=== PATIENT | female | born 1980 | race Caucasian/White ===

== ENCOUNTER 2016-05-23 17:44 | Emergency (ER) | payer MEDICAID, OTHER ==
[~2016-05-23] VITALS: Ht 165.1 cm; Wt 65.0 kg
[~2016-05-23 17:44] MED LIST: CEPH500 PO; METH5SOL3 PO
[2016-05-23 17:45] VITALS: BP 120/73; PULSE 91; RESP 16; TEMP 98.1; O2SAT 98
[2016-05-23] MEDS ORDERED: METR-1 PO (18:39)
--- NOTE | 2016-05-23 18:42 | PD ---
HPI Chief Complaint: Unbundler Problem/Complaint Time Seen by Provider: 18:30 Travel History International Travel<30 days: No Contact w/Intl Traveler<30days: No Traveled to known affect area: No History of Present Illness HPI 35-year-old female presents for evaluation of vaginal discharge. Symptoms started 3 days ago. She describes it as a irritating discharged with a foul- smelling. Symptoms started after her menstrual period ended 3 days ago. She reports that she has had bacterial vaginosis multiple times in the past and this feels similar. She typically gets it after her menstrual periods. She does note some chronic pelvic pain secondary to ovarian cysts but nothing acute. No dysuria, hematuria, flank pain. No nausea or vomiting, diarrhea or constipation, fevers or chills. She was last sexually active 5 months ago. She has no other complaints. PFSH Past Medical History Blood Disorders: No Cancer: Yes (MELANOMA R CHEST REMOVED, 3 LUMPS GROIN TO BE REMOVED) Cardiovascular Problems: No Endocrine: No Genitourinary: No Immune Disorder: No Musculoskeletal: Yes (SPINA BIFADA) Neurologic: No Psychiatric: No Reproductive: Yes (ovarian cysts, TUBULAR ) Respiratory: No ?: Not Ectopic : Yes Ovarian Cysts: Yes Past Surgical History Body Medical Devices: BREAST IMPLANTS Section: Yes Gynecologic Surgery: Yes (OVARIAN CYST - LAPROSCOPIC, TUBULAR , BREAST IMPLANTS) Other Surgery: Yes (breast augmention) Social History Alcohol Use: Yes (early in ) Tobacco Use: Yes Substance Use: No Allergies-Medications (Allergen,Severity, Reaction): Coded Allergies: Codeine (Verified Adverse Reaction, Intermediate, SHAKY, SWEATY, SICK FEELING, 05/22/10) Darvocet-N 100 (Verified Adverse Reaction, Intermediate, MAKES SICK, ) states makes her vomit Zithromax (Verified Adverse Reaction, Intermediate, MAKES "SICK", 05/22/10) Reported Meds & Prescriptions Reported Meds & Active Scripts Active Reported Keflex 500 mg Cap (Cephalexin Monohydrate) 500 Mg Cap 500 Mg PO QID Methadone Hcl (Methadone HCl) 5 Mg/5 Ml Evelyn 10 Mg PO 6 TID Review of Systems Except as stated in HPI: all other systems reviewed are Neg Physical Exam Narrative GENERAL: Well-nourished female in no acute distress SKIN: Warm and dry. HEAD: Atraumatic. Normocephalic. EYES: Pupils equal and round. No scleral icterus. No injection or drainage. ENT: No nasal bleeding or discharge. Mucous membranes pink and moist. NECK: Trachea midline. No JVD. CARDIOVASCULAR: Regular rate and rhythm. No murmur appreciated. RESPIRATORY: No accessory muscle use. Clear to auscultation. Breath sounds equal bilaterally. GASTROINTESTINAL: Abdomen soft, non-tender, nondistended. Hepatic and splenic margins not palpable. No CVA tenderness. MUSCULOSKELETAL: No obvious deformities. NEUROLOGICAL: Awake and alert. No obvious cranial nerve deficits. Motor grossly within normal limits. Normal speech. PSYCHIATRIC: Appropriate mood and affect; insight and judgment normal. Data Data Last Documented VS Vital Signs Date Time Temp Pulse Resp B/P Pulse Ox O2 Delivery O2 Flow Rate FiO2 05/23/16 17:45 98.1 91 16 120/73 98 Orders Metronidazole (Flagyl) (05/23/16 18:45) [facility] Medical Decision Making Medical Screen Exam Complete: Yes Emergency Medical Condition: Yes Medical Record Reviewed: Yes Differential Diagnosis Bacterial vaginosis, vaginitis, trichomoniasis, cervicitis, pelvic inflammatory disease, tubo-ovarian abscess Narrative Course 35 year old female presents with vaginal discharge for 3 days ever since her menstrual period ended. Symptoms are consistent with previous episodes of bacterial vaginosis. Her abdomen is soft and benign. She hasn't been sexually active in over 5 months. I discussed with the patient the option of performing a pelvic examination to rule out other etiologies of her discharge versus empiric treatment given that she has had this issue frequently in the past and this feels similar. The patient declines pelvic examination would be preferred to be treated empirically for bacterial vaginosis. This seems reasonable given her history. She is being discharged with Flagyl. Discussed returning to the emergency room for worsening symptoms. Diagnosis Primary Impression: Vaginal discharge Additional Instructions: Medication as prescribed. Follow-up with primary care physician. Return for any acutely new or worsening symptoms. Med/Other Pt SpecificInfo: Prescription(s) given Scripts Metronidazole (Flagyl)500 Mg [id number] Mg PO BID 7 Days Ref 0 Prov:Marcin Ernandez MD 05/23/16 Disposition: 01 DISCHARGE HOME Condition: Stable Vlad Dc May 23, 2016 18:42
[2016-05-23] MEDS ORDERED: metroNIDAZOLE 500 MG TAB PO ONE (18:45)
== END 2016-05-23 19:01 | disposition home or self-care (01) ==
LOC: NETRI 17:44
DX: N89.8 Other specified noninflammatory disorders of vagina (principal); R10.2 Pelvic and perineal pain; G89.29 Other chronic pain; N83.209 Unspecified ovarian cyst, unspecified side; Z72.0 Tobacco use
CPT/HCPCS: 99283

== ENCOUNTER 2016-05-29 20:21 | Emergency (ER) | payer MEDICAID ==
[~2016-05-29] VITALS: Ht 162.6 cm; Wt 65.0 kg
[~2016-05-29 20:21] MED LIST changes: +METR-1 PO
[2016-05-29 20:23] VITALS: BP 166/93; PULSE 146; RESP 18; TEMP 98.5; O2SAT 97
[2016-05-29 20:57] VITALS: PULSE 129; RESP 18; O2SAT 96
[2016-05-29] MEDS ORDERED: AMOX500T PO (22:14)
[2016-05-29] MEDS ORDERED: AMOXICILLIN (TRIHYDRATE) 500 MG CAP PO ONE (22:15)
[2016-05-29] MEDS ORDERED: IBUPROFEN 600 MG TAB PO ONE (22:15)
--- NOTE | 2016-05-29 22:18 | PD ---
HPI Chief Complaint: ENT Complaint Time Seen by Provider: 22:15 Travel History International Travel<30 days: No Contact w/Intl Traveler<30days: No Traveled to known affect area: No History of Present Illness HPI 35-year-old white female presents to emergency department from the [facility] drug court. She states that she's had sore throat for last several days. Positive subjective fever and chills. She denies any ear pain, cough, congestion, nausea, vomiting, diarrhea or urinary symptoms. PFSH Past Medical History Narrative Medical Melanoma, substance abuse Blood Disorders: No Cancer: Yes (MELANOMA R CHEST REMOVED, 3 LUMPS GROIN TO BE REMOVED) Cardiovascular Problems: No Endocrine: No Genitourinary: No Immune Disorder: No Musculoskeletal: Yes (SPINA BIFADA) Neurologic: No Psychiatric: No Reproductive: Yes (ovarian cysts, TUBULAR ) Respiratory: No ?: Not LMP: 03/26/16 Ectopic : Yes Ovarian Cysts: Yes Past Surgical History Body Medical Devices: BREAST IMPLANTS Section: Yes Gynecologic Surgery: Yes (OVARIAN CYST - LAPROSCOPIC, TUBULAR , BREAST IMPLANTS) Other Surgery: Yes (breast augmention) Social History Alcohol Use: Yes (early in ) Tobacco Use: Yes Substance Use: No Allergies-Medications (Allergen,Severity, Reaction): Coded Allergies: Codeine (Verified Adverse Reaction, Intermediate, SHAKY, SWEATY, SICK FEELING, 05/22/10) Darvocet-N 100 (Verified Adverse Reaction, Intermediate, MAKES SICK, ) states makes her vomit Zithromax (Verified Adverse Reaction, Intermediate, MAKES "SICK", 05/22/10) Reported Meds & Prescriptions Reported Meds & Active Scripts Active Amoxicillin 500 Mg Tab 1,000 Mg PO BID Flagyl (Metronidazole) 500 Mg Tab 500 Mg PO BID 7 Days Reported Keflex 500 mg Cap (Cephalexin Monohydrate) 500 Mg Cap 500 Mg PO QID Methadone HCl 5 Mg/5 Ml Evelyn 10 Mg PO 6 TID Review of Systems Except as stated in HPI: all other systems reviewed are Neg Physical Exam Narrative GENERAL: Well-developed, well-nourished in no acute distress. Nontoxic appearing. HEAD: Normocephalic, atraumatic. EYES: Pupils equal round and reactive. Extraocular motions intact. No scleral icterus. No injection or drainage. ENT: TMs clear without erythema. The external auditory canals clear. Nose: clear . Posterior pharynx is erythematous and moist. Positive tonsillar edema but no exudate. Uvula midline. Airway patent. NECK: Trachea midline.Supple, nontender, moves head freely. No central bony tenderness or spasm. CARDIOVASCULAR: Regular rate and rhythm without murmurs, gallops, or rubs. RESPIRATORY: Clear to auscultation. Breath sounds equal bilaterally. No wheezes , rales, or rhonchi. GASTROINTESTINAL: Abdomen soft, non-tender, nondistended. No hepato-splenomegaly , or palpable masses. No guarding. EXTREMITIES: No clubbing, cyanosis, or edema. No joint tenderness, effusion, or edema noted. BACK: Nontender without deformity or crepitance. No flank tenderness. Data Data Last Documented VS Vital Signs Date Time Temp Pulse Resp B/P Pulse Ox O2 Delivery O2 Flow Rate FiO2 05/29/16 20:57 129 18 96 05/29/16 20:23 98.5 166/93 Room Air MDM Medical Decision Making Medical Screen Exam Complete: Yes Emergency Medical Condition: Yes Medical Record Reviewed: Yes Differential Diagnosis MDM: High Differential diagnoses: Strep throat, viral pharyngitis, mono, peritonsillar abscess, retropharyngeal abscess, Meng's angina Narrative Course This is acute pharyngitis. Patient given Amoxil 500 mg by mouth, Motrin 600 mg by mouth. Diagnosis Primary Impression: Acute pharyngitis Qualified Code: J02.9 - Acute pharyngitis, unspecified etiology Patient Instructions: General Instructions Additional Instructions: Rest. Force fluids. Salt[place] gargles. Tylenol and Advil. Chloraseptic Rhododendron Cepastat lozenge. Amoxicillin. Follow-up with a primary care doctor in one week. Return to the ER if any problems. Scripts Amoxicillin 500 Mg Tab1,000 Mg PO BID #40 TAB Prov:Huey Posada MD 05/29/16 Disposition: 01 DISCHARGE HOME Condition: Stable Chan Gaspar May 29, 2016 22:17
== END 2016-05-29 22:35 | disposition home or self-care (01) ==
LOC: NEPB 20:21
DX: J02.9 Acute pharyngitis, unspecified (principal)
CPT/HCPCS: 99283

== ENCOUNTER 2016-06-17 15:11 | Emergency (ER) | payer MEDICAID ==
[~2016-06-17 15:11] MED LIST changes: +AMOX500T PO
[2016-06-17 15:36] VITALS: BP 119/94; PULSE 96; RESP 16; TEMP 98; O2SAT 96
[2016-06-17] MEDS ORDERED: ZOFR4TAB3 SL (16:18)
[2016-06-17] MEDS ORDERED: AMOX500T PO (16:18)
--- NOTE | 2016-06-17 16:18 | PD ---
HPI Chief Complaint: GI Complaint Time Seen by Provider: 16:02 Travel History International Travel<30 days: No Contact w/Intl Traveler<30days: No Traveled to known affect area: No History of Present Illness HPI Patient 35-year-old female presents emergency department for evaluation of nausea. Patient states she still been feeling somewhat ill after she was diagnosed pharyngitis last week and was unable to fill her medications because [facility]. Patient states she is able to fill her medications if she is given a new prescription. He states his throat still feels somewhat sore but her fevers have resolved denies any rash. Denies any abdominal pain vomiting diarrhea constipation vaginal discharge or vaginal bleeding. PFSH Past Medical History Blood Disorders: No Cancer: Yes (MELANOMA R CHEST REMOVED, 3 LUMPS GROIN TO BE REMOVED) Cardiovascular Problems: No Endocrine: No Genitourinary: No Immune Disorder: No Musculoskeletal: Yes (SPINA BIFADA) Neurologic: No Psychiatric: No Reproductive: Yes (ovarian cysts, TUBULAR ) Respiratory: No ?: Not LMP: 2 WKS AGO Ectopic : Yes Ovarian Cysts: Yes Past Surgical History Body Medical Devices: BREAST IMPLANTS Section: Yes Gynecologic Surgery: Yes (OVARIAN CYST - LAPROSCOPIC, TUBULAR , BREAST IMPLANTS) Other Surgery: Yes (breast augmention) Social History Alcohol Use: Yes (early in ) Tobacco Use: Yes Substance Use: No Allergies-Medications (Allergen,Severity, Reaction): Coded Allergies: Codeine (Verified Adverse Reaction, Intermediate, SHAKY, SWEATY, SICK FEELING, 06/17/16) Darvocet-N 100 (Verified Adverse Reaction, Intermediate, MAKES SICK, ) states makes her vomit Zithromax (Verified Adverse Reaction, Intermediate, MAKES "SICK", 06/17/16) Reported Meds & Prescriptions Reported Meds & Active Scripts Active Amoxicillin 500 Mg Tab 500 Mg PO BID 10 Days Zofran Odt (Ondansetron Odt) 4 Mg Tab 4 Mg SL Q6HR PRN Review of Systems Except as stated in HPI: all other systems reviewed are Neg Physical Exam Narrative GENERAL: Well-nourished, well-developed patient. SKIN: Focused skin assessment warm/dry. No rash HEAD: Normocephalic. EYES: No scleral icterus. No injection or drainage. ENT: Oropharynx clear tonsils normal no exudate airway widely patent. NECK: Supple, trachea midline. No JVD or lymphadenopathy. CARDIOVASCULAR: Regular rate and rhythm without murmurs, gallops, or rubs. RESPIRATORY: Breath sounds equal bilaterally. No accessory muscle use. GASTROINTESTINAL: Abdomen soft, non-tender, nondistended. No CVA tenderness no rebound or percussive tenderness. MUSCULOSKELETAL: No cyanosis, or edema. BACK: Nontender without obvious deformity. No CVA tenderness. Data Data Last Documented VS Vital Signs Date Time Temp Pulse Resp B/P Pulse Ox O2 Delivery O2 Flow Rate FiO2 06/17/16 15:36 98.0 96 16 119/94 96 Room Air Orders Ed Urine Pregnancytest Poc (06/17/16 16:17) MDM Medical Decision Making Medical Screen Exam Complete: Yes Emergency Medical Condition: Yes Medical Record Reviewed: Yes Differential Diagnosis Streptococcal pharyngitis, URI, bronchitis, Narrative Course Urine test negative personally performed. Review of the medical records show the patient had pharyngitis a few days ago and now appears to have significantly resolved. Have offered the patient Bicillin as prophylaxis against medical heart disease and scarlet fever and she would prefer pills. A new prescription for amoxicillin has been written. She still for discharge this time and no indication further workup. Diagnosis Primary Impression: Acute pharyngitis Qualified Code: J02.9 - Acute pharyngitis, unspecified etiology Med/Other Pt SpecificInfo: Prescription(s) given Scripts Amoxicillin 500 Mg [id number] Mg PO BID 10 Days Ref 0 Prov:Michael Mata MD 06/17/16 Ondansetron Odt (Zofran Odt)4 Mg Tab4 Mg SL Q6HR PRN (Nausea/Vomiting) #30 TAB Ref 0 Prov:Michael Mata MD 06/17/16 Disposition: DISCHARGE HOME Condition: Stable Michael Mata MD Jun 17, 2016 16:18
== END 2016-06-17 17:16 | disposition home or self-care (01) ==
LOC: NEPA 15:11
DX: J02.9 Acute pharyngitis, unspecified (principal); Z72.0 Tobacco use
CPT/HCPCS: 84703; 99283

== ENCOUNTER 2016-06-22 16:43 | Emergency (ER) | payer MEDICAID ==
[~2016-06-22 16:43] MED LIST changes: -CEPH500 PO; -METH5SOL3 PO; -METR-1 PO; +ZOFR4TAB3 SL
[2016-06-22 16:45] VITALS: BP 135/92; PULSE 92; RESP 16; TEMP 98.3; O2SAT 96
[2016-06-23] MEDS ORDERED: ZOFR4TAB3 SL (06:08)
[2016-06-23] MEDS ORDERED: HYDR-3533 PO (06:08)
== END 2016-06-22 18:15 | disposition left against medical advice (07) ==
LOC: NED 16:43
DX: Z03.89 Encounter for observation for other suspected diseases and conditions ruled out (principal)
CPT/HCPCS: 99281

== ENCOUNTER 2016-06-23 00:15 | Emergency (ER) | payer MEDICAID ==
[2016-06-23 00:17] VITALS: BP 158/94; PULSE 88; RESP 16; TEMP 98.8; O2SAT 97
--- NOTE | 2016-06-23 00:59 | PD ---
Physical Exam Date Seen by Provider: Jun 23, 2016 Time Seen by Provider: 00:46 Narrative PT SEEN IN TRIAGE. PT IN DRUG TX CENTER AT THE [facility]. SICK WITH N/V UNABLE TO KEEP ANYTHING DOWN. PRESENTS BY EMS. JUST TXED FOR STREP 2-3 WEEKS EARLIER. VITALS SIGNS STABLE. WAITING FOR BED PLACEMENT. Data Data Last Documented VS Vital Signs Date Time Temp Pulse Resp B/P Pulse Ox O2 Delivery O2 Flow Rate FiO2 06/23/16 00:17 98.8 88 16 158/94 97 Room Air [facility] Medical Record Reviewed: Yes Supervised Visit with MACK: Yes Condition: Stable Chan Gaspar Jun 23, 2016 00:59
[2016-06-23] MEDS ORDERED: ACETAMINOPHEN/HYDROcodone 325 MG/5 MG TAB PO ONE (04:15)
[2016-06-23] MEDS ORDERED: ONDANSETRON ODT 4 MG TAB PO ONE (04:15)
--- NOTE | 2016-06-23 05:04 | RADRPT ---
EXAM DATE/TIME: 06/23/2016 04:34 [facility] COMPARISON: No previous studies available for comparison. INDICATIONS : Patient fell today and has swelling and pain near 4th and 5th metatarsals on right foot. MEDICAL HISTORY : None. SURGICAL HISTORY : None. ENCOUNTER: Initial ACUITY: 1 day PAIN SCORE: 8/10 LOCATION: Right Foot FINDINGS: 3 views of the right foot demonstrate an old ununited fracture of the proximal fifth metatarsal metad iaphysis located approximately 2.6 cm from the proximal epiphysis. There is hypertrophic bone at this site but fracture line remains visualized. Lisfranc joint appears intact. There is subchondral cysti c change in the cuboid adjacent to the fifth tarsometatarsal joint. No soft tissue abnormality or rad iopaque foreign body is identified. 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 There is adjacen t hypertrophic bone but fracture line remains visualized. There is degenerative change at the fifth t arsometatarsal joint. Dennis Koch MD on June 23, 2016 at 4:59 Board Certified Radiologist. This report was verified electronically.
--- NOTE | 2016-06-23 05:05 | RADRPT ---
EXAM DATE/TIME: 06/23/2016 04:38 [facility] COMPARISON: No previous studies available for comparison. INDICATIONS : Vomiting and left flank pain from fall. MEDICAL HISTORY : None. SURGICAL HISTORY : None. ENCOUNTER: Initial ACUITY: 2 days PAIN SCORE: 6/10 LOCATION: chest FINDINGS: Portable AP view of the chest demonstrates a normal-sized cardiac silhouette. No effusion, consolidat ion, or pneumothorax is visualized. The bones and soft tissues demonstrate no acute abnormality. CONCLUSION: No acute cardiopulmonary abnormality is identified. Dennis Koch MD on June 23, 2016 at 5:03 Board Certified Radiologist. This report was verified electronically.
[2016-06-23] MEDS ORDERED: ZOFR4TAB3 SL (06:08)
[2016-06-23] MEDS ORDERED: HYDR-3533 PO (06:08)
--- NOTE | 2016-06-23 06:09 | PD ---
HPI Chief Complaint: GI Complaint Time Seen by Provider: 03:35 Travel History International Travel<30 days: No Contact w/Intl Traveler<30days: No Traveled to known affect area: No History of Present Illness HPI 35-year-old female comes to the ER because she states she has been vomiting for 5 days. She evidently had a diagnosis of strep throat. She states she took antibiotics because she is at the [facility]. While she was waiting in the ER she went to [place] and slipped and fell. She hurt her right foot and left ribs. She reports an old fracture on the right foot and that she has chronic pain there. There is also pain in the left anterior chest wall worse with palpation and breathing. The fall was mechanical. Nausea and vomiting more or less seemed to have resolved since the patient arrived to the ER. PFSH Past Medical History Blood Disorders: No Cancer: Yes (MELANOMA R CHEST REMOVED, 3 LUMPS GROIN TO BE REMOVED) Cardiovascular Problems: No Endocrine: No Genitourinary: No Immune Disorder: No Musculoskeletal: Yes (SPINA BIFADA) Neurologic: No Psychiatric: No Reproductive: Yes (ovarian cysts, TUBULAR ) Respiratory: No Tetanus Vaccination: < 5 Years Influenza Vaccination: No ?: Not : 7 Para: 3 Miscarriage: 4 Ectopic : Yes Ovarian Cysts: Yes Past Surgical History Body Medical Devices: BREAST IMPLANTS Section: Yes Gynecologic Surgery: Yes (OVARIAN CYST - LAPROSCOPIC, TUBULAR , BREAST IMPLANTS) Other Surgery: Yes (breast augmenTAtion) Social History Alcohol Use: No Tobacco Use: Yes (1/2-1ppd) Substance Use: No (REHAB) Allergies-Medications (Allergen,Severity, Reaction): Coded Allergies: Codeine (Verified Adverse Reaction, Intermediate, SHAKY, SWEATY, SICK FEELING, 06/23/16) Darvocet-N 100 (Verified Adverse Reaction, Intermediate, MAKES SICK, ) states makes her vomit Zithromax (Verified Adverse Reaction, Intermediate, MAKES "SICK", 06/23/16) Reported Meds & Prescriptions Reported Meds & Active Scripts Active Amoxicillin 500 Mg Tab 500 Mg PO BID 10 Days Zofran Odt (Ondansetron Odt) 4 Mg Tab 4 Mg SL Q6HR PRN Review of Systems Except as stated in HPI: all other systems reviewed are Neg General / Constitutional: No: Fever Gastrointestinal: Positive: Nausea, Vomiting Physical Exam Narrative GENERAL: 35-year-old female pleasant well-nourished well-developed SKIN: Focused skin assessment warm/dry. Ecchymosis over the right foot HEAD: Atraumatic. Normocephalic. EYES: Pupils equal and round. No scleral icterus. No injection or drainage. ENT: No nasal bleeding or discharge. Mucous membranes pink and moist. NECK: Trachea midline. No JVD. CARDIOVASCULAR: Regular rate and rhythm. No murmur appreciated. RESPIRATORY: No accessory muscle use. Clear to auscultation. Breath sounds equal bilaterally. GASTROINTESTINAL: Abdomen soft, non-tender, nondistended. Hepatic and splenic margins not palpable. MUSCULOSKELETAL: No obvious deformities. No clubbing. No cyanosis. No edema. Ecchymosis over the right foot chronic deformity. The patient is ambulatory in the ER. NEUROLOGICAL: Awake and alert. No obvious cranial nerve deficits. Motor grossly within normal limits. Normal speech. PSYCHIATRIC: Appropriate mood and affect; insight and judgment normal. Data Data Last Documented VS Vital Signs Date Time Temp Pulse Resp B/P Pulse Ox O2 Delivery O2 Flow Rate FiO2 06/23/16 03:26 18 06/23/16 00:56 06/23/16 00:17 98.8 88 97 Room Air Orders Foot, Complete ([id number]) (06/23/16 ) Chest, Single Ap (06/23/16 ) Ondansetron Odt (Zofran Odt) (06/23/16 04:15) Acetamin-Hydrocod 325-5 Mg ([place] 5-325 (06/23/16 04:15) MDM Medical Decision Making Medical Screen Exam Complete: Yes Emergency Medical Condition: Yes Medical Record Reviewed: Yes Differential Diagnosis Foot fracture, rib fracture, chronic pain, fall Narrative Course Patient has a chronic right foot injury. We'll place a short posterior splint and provide crutches. Follow-up with podiatry. Pain controlled here. The patient has been ambulating in the ER. She has not vomited in the ER. No evidence of rib injury. 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 There is adjacent hypertrophic bone but fracture line remains visualized. There is degenerative change at the fifth tarsometatarsal joint. Dennis Koch MD Chest X-Ray 06/23/16 0000 Signed Impressions: Service Date/Time: Thursday, June 23, 2016 04:38 - CONCLUSION: No acute cardiopulmonary abnormality is identified. Dennis Koch MD Diagnosis Primary Impression: Foot fracture, right Qualified Code: S92.901D - Foot fracture, right, with routine healing, subsequent encounter Additional Impressions: Contusion of rib on right side Qualified Code: S20.211A - Contusion of rib on right side, initial encounter Fall Qualified Code: W19.XXXA - Fall, initial encounter Nausea & vomiting Qualified Code: R11.2 - Nausea and vomiting, intractability of vomiting not specified, unspecified vomiting type Referrals: Arely Martinez DPKrishan 2 days Additional Instructions: You have a choice when it comes to health care, and we are glad that you chose [facility]. Hopefully, we have met your expectations on today's visit. You are welcome to return to [facility] at any time, as we are committed to meeting the health care needs of our community. Med/Other Pt SpecificInfo: Prescription(s) given Scripts Hydrocodone-Acetaminophen (Lortab)5-325 Mg Tab1-2 Tab PO Q6H PRN (PAIN SCALE 6 TO 10) #15 TAB Ref 0 Prov:Anibal Ashford MD 06/23/16 Ondansetron Odt (Zofran Odt)4 Mg Tab4 Mg SL Q6HR PRN (Nausea/Vomiting) #10 TAB Ref 0 Prov:Anibal Ashford MD 06/23/16 Disposition: 01 DISCHARGE HOME Condition: Stable Anibal Ashford MD Jun 23, 2016 06:09
== END 2016-06-23 07:07 | disposition home or self-care (01) ==
LOC: NEPE 00:15
DX: S92.351A Displaced fracture of fifth metatarsal bone, right foot, initial encounter for closed fracture (principal); S20.211A Contusion of right front wall of thorax, initial encounter; R11.2 Nausea with vomiting, unspecified; W01.0XXA Fall on same level from slipping, tripping and stumbling without subsequent striking against object, initial encounter; Y92.511 Restaurant or cafe as the place of occurrence of the external cause
CPT/HCPCS: 29515; 71010; 73630; 99284; E0113; L2114

== ENCOUNTER 2016-06-26 18:01 | Emergency (ER) | payer MEDICAID ==
[~2016-06-26] VITALS: Ht 162.6 cm; Wt 66.0 kg
[~2016-06-26 18:01] MED LIST changes: +HYDR-3533 PO
[2016-06-26 18:05] VITALS: BP 130/75; PULSE 112; RESP 20; TEMP 99.7; O2SAT 99
[2016-06-26 21:40] VITALS: BP 133/85; PULSE 98; RESP 17; O2SAT 98
[2016-06-26] MEDS ORDERED: CEPHALEXIN MONOHYDRATE 500 MG CAP PO ONE (21:45)
[2016-06-26] MEDS ORDERED: CLINDAMYCIN PHOS 600 MG/4 ML VIAL IM ONE (21:45)
[2016-06-26] MEDS ORDERED: CEPH-460 PO (21:47)
[2016-06-26] MEDS ORDERED: BACT800T5 PO (21:47)
--- NOTE | 2016-06-26 21:47 | PD ---
HPI Chief Complaint: Skin Problem Time Seen by Provider: 21:45 Travel History International Travel<30 days: No Contact w/Intl Traveler<30days: No Traveled to known affect area: No History of Present Illness HPI Patient comes in complaining of possible bug bite to her left distal thigh that began yesterday. Patient states she awoke with it. Patient is concerned she may have been bitten by a bug. Patient denies doing anything for this. Pain is worse with palpation and walking. Pain improves with rest. Describes pain as a throbbing burning sensation. Denies any drainage, fevers, , or previous episodes like this. PFSH Past Medical History Blood Disorders: No Cancer: Yes (MELANOMA R CHEST REMOVED, 3 LUMPS GROIN TO BE REMOVED) Cardiovascular Problems: No Diminished Hearing: No Endocrine: No Genitourinary: No Immune Disorder: No Musculoskeletal: Yes (SPINA BIFADA) Neurologic: No Psychiatric: No Reproductive: Yes (ovarian cysts, TUBULAR ) Respiratory: No Tetanus Vaccination: Unknown Influenza Vaccination: No ?: Not LMP: 2 WEEKS PRIOR : 7 Para: 3 Miscarriage: 4 Ectopic : Yes Ovarian Cysts: Yes Past Surgical History Body Medical Devices: BREAST IMPLANTS Section: Yes Gynecologic Surgery: Yes (OVARIAN CYST - LAPROSCOPIC, TUBULAR , BREAST IMPLANTS) Other Surgery: Yes (breast augmenTAtion) Social History Alcohol Use: No Tobacco Use: Yes (03/27- PPD) Substance Use: No (REHAB) Allergies-Medications (Allergen,Severity, Reaction): Coded Allergies: Codeine (Verified Adverse Reaction, Intermediate, SHAKY, SWEATY, SICK FEELING, 06/26/16) Darvocet-N 100 (Verified Adverse Reaction, Intermediate, MAKES SICK, ) states makes her vomit Zithromax (Verified Adverse Reaction, Intermediate, MAKES "SICK", 06/26/16) Reported Meds & Prescriptions Reported Meds & Active Scripts Active Bactrim DS (Sulfamethoxazole-Trimethoprim) 800-160 Mg Tab 1 Tab PO BID Keflex (Cephalexin) 500 Mg Cap 500 Mg PO Q8H Review of Systems Except as stated in HPI: all other systems reviewed are Neg Physical Exam Narrative GENERAL: Well-developed, overly nourished, in no acute distress, and non-ill appearing. SKIN: Focused skin assessment warm and dry. Patient has cellulitis noted left medial thigh distal aspect is approximately 4 cm x 6 cm in diameter. It is indurated without fluctuation or crepitus. Mildly tender to palpation. It is erythematous and febrile. There is no drainage or obvious wound. HEAD: Atraumatic. Normocephalic. EYES: Pupils equal and round. EOMI. No scleral icterus. No injection or drainage. ENT: No nasal bleeding or discharge. Mucous membranes pink and moist. NECK: Trachea midline. Supple. No nuclear rigidity. RESPIRATORY: No accessory muscle use. No respiratory distress. GASTROINTESTINAL: Abdomen soft, non-tender, nondistended. Hepatic and splenic margins not palpable. No pulsatile mass. MUSCULOSKELETAL: No obvious deformities. No clubbing. No cyanosis. No edema. Full range of motion. Normal gait. NEUROLOGICAL: Awake and alert. No obvious cranial nerve deficits. Motor grossly within normal limits. Normal speech. PSYCHIATRIC: Appropriate mood and affect; insight and judgment normal. Data Data Last Documented VS Vital Signs Date Time Temp Pulse Resp B/P Pulse Ox O2 Delivery O2 Flow Rate FiO2 06/26/16 23:43 84 18 113/73 98 06/26/16 21:40 Room Air 06/26/16 18:05 99.7 Orders Clindamycin Inj (Cleocin Inj) (06/26/16 21:45) Cephalexin (Keflex) (06/26/16 21:45) Ibuprofen (Motrin) (06/26/16 22:00) MDM Medical Decision Making Medical Screen Exam Complete: Yes Emergency Medical Condition: Yes Differential Diagnosis Abscess, cellulitis, folliculitis, gangrene, other Narrative Course The patient has no evidence of obvious abscess at this time. The patient will be discharged on antibiotics for cellulitis with possible early/immature abscess. Clinical suspicion, diagnosis and care management was discussed. The patient was given signs and symptoms warnings for worsening infection, such as spreading of redness, increasing pain, and/or swelling, associated heat, pus or fever and instructed to return immediately if these signs or symptoms worsen. The patient is to return in 2 days for recheck for maturity. Sooner if worsens or as needed. The patient agrees with plan. Patient in no obvious distress upon re-evaluation. Patient was asked if they wanted to speak to my attending, which the patient did not wish to do at this time. Any questions/concerns in reference to patient diagnosis/condition discussed and clarified prior to patient's discharge. Reinforced sheer importance of close follow up with patient's primary physician or primary care clinic. Instructed patient to return to ED immediately, if symptoms return/ worsen. Pt showed understanding of above instructions. Further instructions and recommendations were detailed in discharge paperwork. Pt ambulated without difficulty out of ED at discharge. Diagnosis Primary Impression: Cellulitis Qualified Code: L03.116 - Cellulitis of left lower extremity Patient Instructions: Abscess (GEN), Cellulitis (DC), General Instructions Additional Instructions: Follow-up with your primary care physician and return here in 2 days for recheck. Take all medication as prescribed. Apply warm compresses to affected area 4 times throughout the day to help with pain and facilitate healing. Return to the emergency department if symptoms get worse. Med/Other Pt SpecificInfo: Prescription(s) given Scripts Sulfamethoxazole-Trimethoprim (Bactrim DS)800-160 Mg Tab1 Tab PO BID #20 TAB Ref 0 Prov:Michael Mata MD 06/26/16 Cephalexin (Keflex)500 Mg Uvo360 Mg PO Q8H #30 CAP Ref 0 Prov:Michael Mata MD 06/26/16 Disposition: 01 DISCHARGE HOME Condition: Stable Maikol Abdalla Jun 26, 2016 21:47
[2016-06-26] MEDS ORDERED: IBUPROFEN 800 MG TAB PO ONE (22:00)
[2016-06-26 23:43] VITALS: BP 113/73
== END 2016-06-26 23:44 | disposition home or self-care (01) ==
LOC: NEPE 18:01
DX: L03.116 Cellulitis of left lower limb (principal)
CPT/HCPCS: 96372

== ENCOUNTER 2017-03-30 13:02 | Inpatient (IN) | payer MEDICAID ==
[2017-03-30] VITALS (14 sets, daily range): BP systolic 106–118; BP diastolic 58–78; PULSE 66–98; RESP 16–20; TEMP 97.5–98; O2SAT 98–100
[~2017-03-30] VITALS: Ht 162.6 cm; Wt 86.0 kg
[~2017-03-30 13:02] MED LIST changes: -AMOX500T PO; +BACT800T5 PO; +CEPH-460 PO; -HYDR-3533 PO; -ZOFR4TAB3 SL
[2017-03-30] MEDS ORDERED: LACTATED RINGER'S 1000 ML INJ 1,000 ML IV ONE (13:25)
[2017-03-30] MEDS ORDERED: BUSP10TA PO (14:23)
[2017-03-30] MEDS ORDERED: PREN29TA PO (14:23)
[2017-03-30] MEDS ORDERED: subutex PO (14:23)
[2017-03-30] MEDS ORDERED: SERO50TA PO (14:23)
[2017-03-30] MEDS: LACTATED RINGER'S 1000 ML INJ 1,000 ML IV SCH ×2 (14:24→20:35)
[2017-03-30 14:27] LABS: AUTOMATED NEUTROPHIL # 5.3 TH/MM3 (1.8-7.7); BASOPHIL % 0.5 % (0.0-2.0); EOSINOPHIL # 0.1 TH/MM3 (0-0.4); EOSINOPHIL % 0.8 % (0.0-4.0); HEMATOCRIT 31.6 % (35.0-46.0); HEMOGLOBIN 10.7 GM/DL (11.6-15.3); LYMPHOCYTE # 2.2 TH/MM3 (1.0-4.8); MEAN CORPUSCULAR HEMOGLOBIN 31.5 PG (27.0-34.0); MEAN CORPUSCULAR HGB CONC 33.9 % (32.0-36.0); MEAN PLATELET VOLUME 7.9 FL (7.0-11.0); MONO % 5.4 % (0.0-8.0); MONOCYTE # 0.4 TH/MM3 (0-0.9); NEUT % 66.3 % (16.0-70.0); PLATELET COUNT 241 TH/MM3 (150-450); RED BLOOD COUNT 3.39 MIL/MM3 (4.00-5.30); RED CELL DISTRIBUTION WIDTH 14.1 % (11.6-17.2)
[2017-03-30] MEDS ORDERED: ceFAZolin 2 GM PREMIX 50 ML IV SCH (14:30)
[2017-03-30 14:35] LABS: BACTERIA, URINE RARE /hpf; BILIRUBIN, URINE NEG (NEG); BLOOD, URINE NEG (NEG); GLUCOSE,URINE NEG (NEG); KETONE, URINE NEG (NEG); MUCUS URINE FEW /lpf (OCC); NITRITE,URINE NEG (NEG); SQUAMOUS EPITHELIAL CELL URINE 1 /hpf (0-5); URINE COLOR YELLOW (YELLW/STRAW); URINE LEUKOCYTE ESTERASE NEG (NEG)
[2017-03-30] MEDS ORDERED: MORPHINE SULFATE PF 5 MG/10 ML VIAL ONE (14:59)
[2017-03-30] MEDS ORDERED: CITRIC ACID-SODIUM CITRATE LIQ 30 ML UDC PO SCH (15:00)
[2017-03-30] MEDS ORDERED: SODIUM CHLORIDE 0.9% FLUSH 10 ML FLUSH IV FLUSH PRN (16:00)
[2017-03-30] MEDS ORDERED: ACETAMINOPHEN 1000 MG/100 ML 100 ML IV ONE ×2 (16:00→17:05)
[2017-03-30] MEDS ORDERED: BUPR8SUB SL (16:00)
[2017-03-30] MEDS ORDERED: oxyCODONE/ACETAMINOPHEN 5 MG/325 MG TAB PO PRN (16:00)
[2017-03-30] MEDS ORDERED: OXYTOCIN 30 UNITS-500ML PREMIX 500 ML IV ONE (16:00)
[2017-03-30] MEDS ORDERED: ONDANSETRON HCL 4 MG/2 ML VIAL IV PUSH PRN (16:00)
--- NOTE | 2017-03-30 16:02 | HHI.DCPOC ---
Discharge Care Plan Report Symptoms to Your Doctor -Temperature above 100.5 degrees -Redness, of incision or excessive or foul smelling drainage -Unusual pain or calf pain -Increased vaginal bleeding -Painful or difficulty urinating -Feelings of extreme sadness or anxiety after 2 weeks Goals to Promote Your Health * To prevent worsening of your condition and complications * To maintain your health at the optimal level Directions to Meet Your Goals Take your medications as prescribed Follow your dietary instruction Follow activity as directed Ensure plenty of rest for recovery Drink fluids for hydration Keep your appointments as scheduled Take your immunizations and boosters as scheduled If your symptoms worsen call your PCP, if no PCP go to Urgent Care Center or Emergency Room Smoking is Dangerous to Your Health. Avoid second hand smoke Call the 24-hour crisis hotline for domestic abuse at Aubree Hart MD Mar 30, 2017 16:02
--- NOTE | 2017-03-30 16:06 | PD.OB.DELI ---
Procedure Note Section Procedure Pre Op Diagnosis: (1) Previous section (2) Term Post Op Diagnosis: (1) Previous section (2) Term Performed by Aurbee Hart Procedure: Repeat Low Transverse Sec, Other (right salpingectomy) Indication for delivery: Desired elective repeat Informed consent obtained: For anesthesia, For procedure, Other (tubal ligation with previous left salpingectomy) Confirmed correct: Patient, Procedure, Site, Time-out taken Anesthesia: Spinal Medication prior to procedure: As documented in eMAR Monitoring during procedure: Blood pressure monitoring, monitoring manager, doppler, Pulse oximetry Urinary catheter: Inserted using sterile technique, To dependent drainage Sterile preparation: Duraprep, In usual fashion Position: Supine with wedge to right side Operative Features Skin Incision: Pfannenstiel Uterine Incision: Low transverse w/knife / blunt ext Membranes Ruptured: Artificially Presentation: Occiput anterior Delivery date: Mar 30, 2017 Delivery time: 16:06 Delivery of infant: Assisted : Female One Minute : 8 Five Minute : 9 Weight: 7 4 Status of : Viable, Cord blood Placenta delivered: Intact Medications: Antibiotics, Oxytocin Estimated blood loss: 500 Procedure tolerated: Well Maternal Condition: Stable Condition: Stable Procedure in detail dictated Aubree Hart MD Mar 30, 2017 16:06
[2017-03-30] MEDS ORDERED: OXYTOCIN 30 UNITS-500ML PREMIX 500 ML ONE (16:55)
[2017-03-30] MEDS: BUPRENORPHINE HCL 8 MG SUBLINGUAL TAB SL SCH ×2 (17:28→21:00)
--- NOTE | 2017-03-30 17:29 | MP ---
cc: NICOLE ESCAMILLA DATE OF SURGERY 03/30/17 PREOPERATIVE DIAGNOSIS 1. Term intrauterine prior section x2 2. Opioid maintenance with Subutex residing at warm POSTOPERATIVE DIAGNOSIS 1. Term intrauterine prior section x2 2. Opioid maintenance with Subutex residing at warm 3. Delivered PROCEDURE Repeat low transverse segment section and tubal ligation, specifically right salpingectomy as she is status post left salpingectomy ANESTHESIA Spinal with Duramorph and then she received a tap SURGEON Hadley Escamilla MD HUMAN INTELLIGENCE OR staff FINDINGS A living female was delivered from [facility] with clear fluid. No nuchal cord. Apgars were eight at 1 minute and 9 at 5 minutes and her weight was 7 pounds 4 ounces. The placenta was posterior and delivered intact with a three-vessel cord. The uterus was exteriorized allowing that she had with the right tube and a fimbriectomy was performed for the left tube had been removed due to prior ectopic. Estimated blood loss was 500 mL. Sponge, instrument, needle count correct. She tolerated the procedure well and went to the recovery room in stable condition. PROCEDURE IN DETAIL The patient was identified as Danisha Carey. She was walked to the OR, given a spinal with Duramorph, placed in dorsal supine position with weight off the vena cava. After establishing a time-out, she was prepped and draped in the usual sterile fashion. She had a Arguello and then sequentials on and she had received 2 grams of Ancef IV. We assured adequate analgesia and a Pfannenstiel was then made through her previous Pfannenstiel and carried down through the scarred subcutaneous tissue with the Bovie on cutting and then the fascia was incised in an elliptical fashion and it was taken sharply off the rectus muscle. The rectus muscle was opened in the midline. The parietal peritoneum was entered. A bladder flap was not able to be created due to the scarring of the bladder to the lower uterine segment. An incision was made superior to that and carefully extended to not tear the bladder. The infant was delivered with a Kiwi support and the cord was clamped x2, cut and she was handed to neonatology team in attending. A 45-second delay was done to optimize hematocrit. Cord blood was obtained and then the placenta was removed intact. The uterus was exteriorized, cleaned with a lap sponge and closed with chromic in a running interlocking fashion with a second horizontal imbricating suture with care to avoid the bladder. Then the right tube was grasped and the entire distal portion of it was tied off x3 with 0 plain and then it was excised. There was no left tube and this was confirmed. The uterus was placed back in the abdominal cavity. Incision was examined for hemostasis. Irrigation was performed and then the rectus muscles approximated with a Vicryl stitch. The fascia was closed with a running Vicryl, the subcutaneous layer was closed with 3-0 plain and the skin was closed with 4-0 Vicryl on a Robin needle. MD NATHAN Sims/ /4:15 PM /4:56 PM
[2017-03-30] MEDS ORDERED: EPIDURAL-DIPHENHYDRAMINE HCL 50 MG/ML VIAL IV PUSH PRN (18:15)
[2017-03-30] MEDS ORDERED: EPIDURAL-NALOXONE HCL 0.4 MG/ML AMP IV PUSH PRN (18:15)
[2017-03-30] MEDS ORDERED: EPIDURAL-DO NOT ADMINISTER ANTICOAGULANTS PRN (18:15)
[2017-03-30] MEDS ORDERED: EPIDURAL-NO SYSTEMIC NARCOTICS PRN (18:15)
[2017-03-30] MEDS ORDERED: EPIDURAL-DIPHENHYDRAMINE HCL 50 MG CAP PO PRN (18:15)
[2017-03-30] MEDS: IBUPROFEN 600 MG TAB PO PRN (20:15)
[2017-03-30] MEDS: oxyCODONE/ACETAMINOPHEN 5 MG/325 MG TAB PO PRN (20:15)
[2017-03-30] MEDS ORDERED: LACTATED RINGER'S 1000 ML INJ 1,000 ML IV SCH (20:55)
[2017-03-30] MEDS: SODIUM CHLORIDE 0.9% FLUSH 10 ML FLUSH IV FLUSH SCH (21:00)
[2017-03-30] MEDS: QUEtiapine FUMARATE 25 MG TAB PO SCH (21:47)
[2017-03-30] MEDS: busPIRone HCL 10 MG TAB PO SCH (21:47)
[2017-03-31] VITALS (8 sets, daily range): BP systolic 98–117; BP diastolic 52–71; PULSE 72–100; RESP 16–20; TEMP 97.5–98.1; O2SAT 97–98
[2017-03-31] MEDS: oxyCODONE/ACETAMINOPHEN 5 MG/325 MG TAB PO PRN ×4 (00:51→14:36)
[2017-03-31] MEDS ORDERED: OXYTOCIN 30 UNITS-500ML PREMIX 500 ML IV PRN (02:00)
[2017-03-31] MEDS: LACTATED RINGER'S 1000 ML INJ 1,000 ML IV SCH (03:15)
[2017-03-31] MEDS: IBUPROFEN 600 MG TAB PO PRN ×3 (03:39→19:58)
[2017-03-31 06:05] LABS: AUTOMATED NEUTROPHIL # 8.1 TH/MM3 (1.8-7.7); BASOPHIL % 0.1 % (0.0-2.0); EOSINOPHIL % 0.1 % (0.0-4.0); HEMATOCRIT 24.3 % (35.0-46.0); HEMOGLOBIN 8.4 GM/DL (11.6-15.3); LYMPH % 14.5 % (9.0-44.0); LYMPHOCYTE # 1.5 TH/MM3 (1.0-4.8); MEAN CELL VOLUME 93.5 FL (80.0-100.0); MEAN CORPUSCULAR HEMOGLOBIN 32.1 PG (27.0-34.0); MEAN CORPUSCULAR HGB CONC 34.4 % (32.0-36.0); MEAN PLATELET VOLUME 7.7 FL (7.0-11.0); MONO % 5.6 % (0.0-8.0); MONOCYTE # 0.6 TH/MM3 (0-0.9); NEUT % 79.7 % (16.0-70.0); PLATELET COUNT 202 TH/MM3 (150-450); RED CELL DISTRIBUTION WIDTH 13.9 % (11.6-17.2); WHITE BLOOD COUNT 10.2 TH/MM3 (4.0-11.0)
[2017-03-31] MEDS: BUPRENORPHINE HCL 8 MG SUBLINGUAL TAB SL SCH ×2 (09:32→21:14)
[2017-03-31] MEDS: busPIRone HCL 10 MG TAB PO SCH ×2 (09:32→21:14)
[2017-03-31] MEDS ORDERED: INFLUENZA VIRUS VACCINE (QUADRIVALENT) 0.5 ML SYR IM ONE (10:00)
[2017-03-31] MEDS ORDERED: MEASLES, MUMPS, RUBELLA VACCINE 0.5 ML VIAL SQ ONE (16:00)
[2017-03-31] MEDS ORDERED: DIPHTH/TETANUS/ACEL PERTUSSIS (BOOSTER) 0.5 ML VIAL/PFS IM ONE (16:00)
[2017-03-31] MEDS ORDERED: MEPERIDINE HCL 50 MG/ML VIAL IM ONE (16:15)
--- NOTE | 2017-03-31 16:24 | HHI.OB ---
Subjective Post Operative Day: 1 Remarks Pain is 8/10 and I can hardly take care of my baby Bleeding is normal Has flatus and eating a regular diet. Baby is doing well Objective Vitals/I&O Vital Signs Date Time Temp Pulse Resp B/P (MAP) Pulse Ox O2 Delivery O2 Flow Rate FiO2 03/31/17 08:00 97.8 72 16 101/64 (76) 97 03/31/17 05:35 16 03/31/17 04:50 18 03/31/17 04:00 97.5 76 114/66 (82) 97 03/31/17 03:39 18 03/31/17 01:00 20 03/31/17 00:00 98.1 100 98/52 (67) 98 03/30/17 23:45 18 03/30/17 21:47 20 03/30/17 20:00 97.7 79 18 98 03/30/17 20:00 110/67 (81) 03/30/17 18:21 18 03/30/17 18:00 98.0 72 18 115/78 (90) 99 03/30/17 17:30 74 16 113/69 (84) 100 03/30/17 17:15 97.6 03/30/17 17:15 79 110/69 (83) 03/30/17 17:15 16 100 03/30/17 17:00 106/63 (77) 03/30/17 17:00 66 16 110/69 (83) 100 03/30/17 16:45 79 18 100 03/30/17 16:45 109/60 (76) 03/30/17 16:30 16 100 03/30/17 16:30 83 118/60 (79) Result Diagram: 03/31/17 0556 Objective Remarks GENERAL: Well-nourished, well-developed patient. CARDIOVASCULAR: Regular rate and rhythm without murmurs, gallops, or rubs. RESPIRATORY: Breath sounds equal bilaterally. No accessory muscle use. ABDOMEN/GI: Abdomen soft, non-tender, bowel sounds present. Incision: Clean, dry and intact. Fundus: Firm, non-tender at umbilicus. GENITOURINARY: Light to moderate bleeding. EXTREMITIES: No cyanosis or edema, non-tender, without signs of DVT. Medications and IVs Current Medications Medications (Trade) Dose Ordered Sig/Crissy Route Start Time Stop Time Status Last Admin Lactated Ringer's 1,000 ml @ 150 mls/hr Q6H40M IV 03/30/17 13:55 03/30/17 14:24 Cefazolin Sodium/ Dextrose 50 ml @ 100 mls/hr FORMING DEPARTMENT END FINDER IV 03/30/17 14:30 04/03/17 14:29 03/30/17 14:47 (Bicitra Liq) 30 ml FORMING DEPARTMENT END FINDER PO 03/30/17 15:00 04/03/17 14:59 03/30/17 14:47 Lactated Ringer's 1,000 ml @ 100 mls/hr Q10H IV 03/30/17 20:55 03/31/17 16:54 Oxytocin 500 ml @ 100 mls/hr UNSCH X1 PRN IV 03/31/17 02:00 04/01/17 01:59 (NS Flush) 2 ml BID IV FLUSH 03/30/17 21:00 (NS Flush) 2 ml UNSCH PRN IV FLUSH 03/30/17 16:00 (Mylicon Chew) 80 mg QID PRN PO 03/30/17 16:00 (Motrin) 600 mg Q6H PRN PO 03/30/17 16:00 03/31/17 10:32 (Percocet 5-325 Mg) 1 tab Q4H PRN PO 03/30/17 16:00 (Percocet 5-325 Mg) 2 tab Q4H PRN PO 03/30/17 16:00 03/31/17 14:36 (Zofran Inj) 4 mg Q6H PRN IV PUSH 03/30/17 16:00 (Buprenorphine) 4 mg BID SL 03/30/17 17:00 03/31/17 09:32 (Buspar) 10 mg Q12HR PO 03/30/17 21:00 03/31/17 09:32 (SEROquel) 50 mg HS PO 03/30/17 21:00 03/30/17 21:47 Miscellaneous Information NO SYSTEMIC NARCOTICS TO BE GIVEN FO... UNSCH PRN .XX 03/30/17 18:15 03/31/17 18:14 (Narcan Inj) 0.4 mg UNSCH PRN IV PUSH 03/30/17 18:15 03/31/17 18:14 (Benadryl Inj) 25 mg Q6H PRN IV PUSH 03/30/17 18:15 03/31/17 18:14 (Benadryl) 50 mg Q6H PRN PO 03/30/17 18:15 03/31/17 18:14 Miscellaneous Information ALL NURSING DEPARTMENTS UNSCH PRN .XX 03/30/17 18:15 03/31/17 18:14 Assessment/Plan Assessment and Plan POD #1 Severe anemia will give her some venofer today and restart her iv. Pain is too high will give dose of demerol and increase the percocet to 7.5 Control the pain and then routine care Cha Mejia MD Mar 31, 2017 16:24
[2017-03-31] MEDS ORDERED: oxyCODONE/ACETAMINOPHEN 7.5 MG/325 MG TAB PO PRN (16:30)
[2017-03-31] MEDS: SIMETHICONE 80 MG CHEWABLE TAB PO PRN (19:57)
[2017-03-31] MEDS: oxyCODONE/ACETAMINOPHEN 7.5 MG/325 MG TAB PO PRN (20:18)
[2017-03-31] MEDS: QUEtiapine FUMARATE 25 MG TAB PO SCH (21:14)
[2017-04-01] MEDS: oxyCODONE/ACETAMINOPHEN 7.5 MG/325 MG TAB PO PRN ×5 (00:34→19:49)
[2017-04-01] MEDS: IBUPROFEN 600 MG TAB PO PRN ×3 (04:33→19:50)
[2017-04-01 08:00] VITALS: BP 97/69; PULSE 81; RESP 20; TEMP 95.3; O2SAT 0
[2017-04-01] MEDS ORDERED: IRON SUCROSE INJ 100 MG in SODIUM CHLORIDE 0.9% INJ 100 ML IV SCH (09:00)
[2017-04-01] MEDS: busPIRone HCL 10 MG TAB PO SCH ×2 (09:09→21:27)
[2017-04-01] MEDS: BUPRENORPHINE HCL 8 MG SUBLINGUAL TAB SL SCH ×2 (09:10→21:26)
[2017-04-01] MEDS: SIMETHICONE 80 MG CHEWABLE TAB PO PRN (09:10)
[2017-04-01] MEDS ORDERED: OXYC1TAB35 PO (14:11)
--- NOTE | 2017-04-01 14:21 | HHI.OB ---
Subjective Post Operative Day: 2 Remarks Doing well, pain medicine is working better now Baby needs to stay for a bit because of BILLY. She is going back to project warm. Bleeding is normal Objective Vitals/I&O Vital Signs Date Time Temp Pulse Resp B/P (MAP) Pulse Ox O2 Delivery O2 Flow Rate FiO2 04/01/17 08:00 95.3 81 20 97/69 (78) 0 03/31/17 20:00 117/71 (86) 03/31/17 20:00 97.9 90 16 Result Diagram: 03/31/17 0556 Objective Remarks GENERAL: Well-nourished, well-developed patient. CARDIOVASCULAR: Regular rate and rhythm without murmurs, gallops, or rubs. RESPIRATORY: Breath sounds equal bilaterally. No accessory muscle use. ABDOMEN/GI: Abdomen soft, non-tender, bowel sounds present. Incision: Clean, dry and intact. Fundus: Firm, non-tender at umbilicus. GENITOURINARY: Light to moderate bleeding. EXTREMITIES: No cyanosis or edema, non-tender, without signs of DVT. Medications and IVs Current Medications Medications (Trade) Dose Ordered Sig/Crissy Route Start Time Stop Time Status Last Admin Lactated Ringer's 1,000 ml @ 150 mls/hr Q6H40M IV 03/30/17 13:55 03/30/17 14:24 Cefazolin Sodium/ Dextrose 50 ml @ 100 mls/hr POWDER ROOM ATTENDANT IV 03/30/17 14:30 04/03/17 14:29 03/30/17 14:47 (Bicitra Liq) 30 ml POWDER ROOM ATTENDANT PO 03/30/17 15:00 04/03/17 14:59 03/30/17 14:47 (NS Flush) 2 ml BID IV FLUSH 03/30/17 21:00 (NS Flush) 2 ml UNSCH PRN IV FLUSH 03/30/17 16:00 (Mylicon Chew) 80 mg QID PRN PO 03/30/17 16:00 04/01/17 09:10 (Motrin) 600 mg Q6H PRN PO 03/30/17 16:00 04/01/17 13:45 (Zofran Inj) 4 mg Q6H PRN IV PUSH 03/30/17 16:00 (Buprenorphine) 4 mg BID SL 03/30/17 17:00 04/01/17 09:10 (Buspar) 10 mg Q12HR PO 03/30/17 21:00 04/01/17 09:09 (SEROquel) 50 mg HS PO 03/30/17 21:00 03/31/17 21:14 (Percocet 7.5-325 Mg) 1 tab Q4H PRN PO 03/31/17 16:30 (Percocet 7.5-325 Mg) 2 tab Q4H PRN PO 03/31/17 16:30 04/01/17 09:09 Iron Sucrose 100 mg/Sodium Chloride 105 ml @ 105 mls/hr DAILY IV 04/01/17 09:00 04/03/17 09:59 Assessment/Plan Assessment and Plan POD #2 Severe anemia unable to start an IV so did not get her vevnofer. Will give po Fe later when she is off the Percocet. Pain is under better control and she wants the 7.5 percocet to go home. Informed her they may not pay for that dosage. Routine care. Cha Mejia MD Apr 01, 2017 14:21
[2017-04-01 20:00] VITALS: BP 104/64; PULSE 104; RESP 20; TEMP 97.5; O2SAT 98
[2017-04-01] MEDS: QUEtiapine FUMARATE 25 MG TAB PO SCH (21:26)
[2017-04-02] MEDS: oxyCODONE/ACETAMINOPHEN 7.5 MG/325 MG TAB PO PRN ×6 (00:21→21:00)
[2017-04-02] MEDS: IBUPROFEN 600 MG TAB PO PRN ×3 (04:38→20:59)
[2017-04-02 08:47] VITALS: BP 115/78; PULSE 125; RESP 18; TEMP 98.6
[2017-04-02] MEDS: SODIUM CHLORIDE 0.9% FLUSH 10 ML FLUSH IV FLUSH SCH (09:00)
[2017-04-02] MEDS: busPIRone HCL 10 MG TAB PO SCH ×2 (09:01→21:00)
[2017-04-02] MEDS: BUPRENORPHINE HCL 8 MG SUBLINGUAL TAB SL SCH ×2 (09:02→21:02)
[2017-04-02] MEDS ORDERED: DOCUSATE SODIUM 100 MG CAP PO ONE (09:30)
[2017-04-02] MEDS ORDERED: POLYSACCHARIDE IRON COMPLEX 150 MG CAP PO ONE (09:30)
[2017-04-02] MEDS: SIMETHICONE 80 MG CHEWABLE TAB PO PRN (11:10)
--- NOTE | 2017-04-02 18:24 | HHI.OB ---
Subjective Post Operative Day: 3 Remarks POD#3, C/O INCISIONAL PAIN ,REQUIRES FREQUENT PAIN MED. Objective Vitals/I&O Vital Signs Date Time Temp Pulse Resp B/P (MAP) Pulse Ox O2 Delivery O2 Flow Rate FiO2 04/02/17 08:47 98.6 04/02/17 08:47 125 18 115/78 (90) 04/01/17 20:00 104/64 (77) 04/01/17 20:00 104 20 98 04/01/17 20:00 97.5 Result Diagram: 03/31/17 0556 Objective Remarks GENERAL: Well-nourished, well-developed patient. CARDIOVASCULAR: Regular rate and rhythm without murmurs, gallops, or rubs. RESPIRATORY: Breath sounds equal bilaterally. No accessory muscle use. ABDOMEN/GI: Abdomen soft, non-tender, bowel sounds present. Incision: Clean, dry and intact. Fundus: Firm, non-tender at umbilicus. GENITOURINARY: Light to moderate bleeding. EXTREMITIES: No cyanosis or edema, non-tender, without signs of DVT. Medications and IVs Current Medications Medications (Trade) Dose Ordered Sig/Crissy Route Start Time Stop Time Status Last Admin Lactated Ringer's 1,000 ml @ 150 mls/hr Q6H40M IV 03/30/17 13:55 03/30/17 14:24 Cefazolin Sodium/ Dextrose 50 ml @ 100 mls/hr GEAR SHAPER SET UP OPERATOR IV 03/30/17 14:30 04/03/17 14:29 03/30/17 14:47 (Bicitra Liq) 30 ml GEAR SHAPER SET UP OPERATOR PO 03/30/17 15:00 04/03/17 14:59 03/30/17 14:47 (NS Flush) 2 ml BID IV FLUSH 03/30/17 21:00 (NS Flush) 2 ml UNSCH PRN IV FLUSH 03/30/17 16:00 (Mylicon Chew) 80 mg QID PRN PO 03/30/17 16:00 04/02/17 11:10 (Motrin) 600 mg Q6H PRN PO 03/30/17 16:00 04/02/17 13:01 (Zofran Inj) 4 mg Q6H PRN IV PUSH 03/30/17 16:00 (Buprenorphine) 4 mg BID SL 03/30/17 17:00 04/02/17 09:02 (Buspar) 10 mg Q12HR PO 03/30/17 21:00 04/02/17 09:01 (SEROquel) 50 mg HS PO 03/30/17 21:00 04/01/17 21:26 (Percocet 7.5-325 Mg) 1 tab Q4H PRN PO 03/31/17 16:30 (Percocet 7.5-325 Mg) 2 tab Q4H PRN PO 03/31/17 16:30 04/02/17 16:56 Assessment/Plan Assessment and Plan POD #3 CONTINUES FREQUENT NARCOTIC PAIN MED, EXAM IS UNREMARKABLE, SLOW TO AMBULATE. DISCUSSED HOLDING DISCHARGE UNTIL TOMORROW . Discharge Planning POD#4; TOMORROW Attending Attestation SEEN BY Jesús Martínez MD Apr 02, 2017 18:24
[2017-04-02] MEDS: QUEtiapine FUMARATE 25 MG TAB PO SCH (21:01)
[2017-04-02 21:31] VITALS: BP 99/80; PULSE 108; RESP 18; TEMP 98
[2017-04-03] MEDS: oxyCODONE/ACETAMINOPHEN 7.5 MG/325 MG TAB PO PRN ×3 (01:06→09:30)
[2017-04-03] MEDS: IBUPROFEN 600 MG TAB PO PRN (05:11)
[2017-04-03 08:00] VITALS: BP 118/65; PULSE 94; RESP 18; TEMP 98.2
--- NOTE | 2017-04-03 08:31 | HHI.OB ---
Subjective Post Operative Day: 4 Remarks pain better controlled Objective Vitals/I&O Vital Signs Date Time Temp Pulse Resp B/P (MAP) Pulse Ox O2 Delivery O2 Flow Rate FiO2 04/02/17 21:31 98.0 108 18 99/80 (86) 04/02/17 08:47 98.6 04/02/17 08:47 125 18 115/78 (90) Result Diagram: 03/31/17 0556 Objective Remarks GENERAL: Well-nourished, well-developed patient. CARDIOVASCULAR: Regular rate and rhythm without murmurs, gallops, or rubs. RESPIRATORY: Breath sounds equal bilaterally. No accessory muscle use. ABDOMEN/GI: Abdomen soft, non-tender, bowel sounds present. Incision: Clean, dry and intact. Fundus: Firm, non-tender at umbilicus. GENITOURINARY: Light to moderate bleeding. EXTREMITIES: No cyanosis or edema, non-tender, without signs of DVT. Medications and IVs Current Medications Medications (Trade) Dose Ordered Sig/Crissy Route Start Time Stop Time Status Last Admin Lactated Ringer's 1,000 ml @ 150 mls/hr Q6H40M IV 03/30/17 13:55 03/30/17 14:24 Cefazolin Sodium/ Dextrose 50 ml @ 100 mls/hr BILL BOARD POSTER IV 03/30/17 14:30 04/03/17 14:29 03/30/17 14:47 (Bicitra Liq) 30 ml BILL BOARD POSTER PO 03/30/17 15:00 04/03/17 14:59 03/30/17 14:47 (NS Flush) 2 ml BID IV FLUSH 03/30/17 21:00 (NS Flush) 2 ml UNSCH PRN IV FLUSH 03/30/17 16:00 (Mylicon Chew) 80 mg QID PRN PO 03/30/17 16:00 04/02/17 11:10 (Motrin) 600 mg Q6H PRN PO 03/30/17 16:00 04/03/17 05:11 (Zofran Inj) 4 mg Q6H PRN IV PUSH 03/30/17 16:00 (Buprenorphine) 4 mg BID SL 03/30/17 17:00 04/02/17 21:02 (Buspar) 10 mg Q12HR PO 1/5/18 21:00 04/02/17 21:00 (SEROquel) 50 mg HS PO 03/30/17 21:00 04/02/17 21:01 (Percocet 7.5-325 Mg) 1 tab Q4H PRN PO 03/31/17 16:30 (Percocet 7.5-325 Mg) 2 tab Q4H PRN PO 03/31/17 16:30 04/03/17 05:11 Assessment/Plan Assessment and Plan POD #4 ready for d/c today. HAs percocet rx. Will call office and arrange f/u w Dr Hart prior to running out of subutex. reviewed post op care and precautions Discharge Planning POD#4 Ivette Norton MD Apr 03, 2017 08:31
[2017-04-03] MEDS: SIMETHICONE 80 MG CHEWABLE TAB PO PRN (09:30)
[2017-04-03] MEDS ORDERED: PILL SPLITTER OTHER PRN (09:30)
[2017-04-03] MEDS: BUPRENORPHINE HCL 8 MG SUBLINGUAL TAB SL SCH (09:30)
[2017-04-03] MEDS: busPIRone HCL 10 MG TAB PO SCH (09:30)
== END 2017-04-03 12:07 | disposition short-term general hospital (02) | DRG 765 ==
LOC: H2EB 13:02 → H1EA 17:44
PROVIDERS: ADMIT Obstetrics & Gynecology; ATTEND Obstetrics & Gynecology
PROC: 10D00Z1 Extraction of Products of Conception, Low, Open Approach (ICD-10-PCS; principal; 2017-03-30)
PROC: 0UB50ZZ Excision of Right Fallopian Tube, Open Approach (ICD-10-PCS; 2017-03-30)
DX: O34.211 Maternal care for low transverse scar from previous cesarean delivery (principal); F11.20 Opioid dependence, uncomplicated; O99.323 Drug use complicating pregnancy, third trimester; Z37.0 Single live birth; Z30.2 Encounter for sterilization; Z3A.40 40 weeks gestation of pregnancy; D64.9 Anemia, unspecified; O99.02 Anemia complicating childbirth
CPT/HCPCS: 59025; 80307; 81001; 85025; 86703; 86850; 86900; 86901; 87522; 88302; 90715; J0131; J0690; J2175; J2274; J2590; J7120